=== PATIENT | male | born 1990 | race Caucasian/White ===

== ENCOUNTER 2016-09-03 01:25 | Emergency (ER) | payer OTHER ==
[~2016-09-03] VITALS: Ht 198.1 cm; Wt 108.3 kg
[2016-09-03 01:29] VITALS: TEMP 36.7; Ht 198.1 cm; Wt 108.3 kg
[2016-09-03] MEDS ORDERED: DIPHTHERIA/TETANUS/PERTUSSIS 0.5 ML SYR/VIAL IM. ONE (02:00)
[2016-09-03 02:28] LABS: BASO % 0.5 %; BASO ABS # 0.03 K/uL (0-0.2); COMPLETE YES; EOS % 0.2 %; HEMATOCRIT 43.7 % (42-52); IG% 0.2 %; LYMPH % 20.5 %; LYMPH ABS # 1.14 K/uL (1.2-3.4); MEAN CELL VOLUME 92.2 fL (80-100); MEAN CORPUSCULAR HEMOGLOBIN 32.9 pg (25-34); MEAN CORPUSCULAR HGB CONC 35.7 g/dl (32-36); MEAN PLATELET VOLUME 8.8 fL (7.4-10.4); MONO % 5.2 %; NEUT % 73.4 %; PLATELET COUNT 269 K/uL (130-400); RED BLOOD COUNT 4.74 M/uL (4.7-6.1); WHITE BLOOD COUNT 5.55 K/uL (4.8-10.8)
[2016-09-03 02:46] LABS: BUN/CREATININE RATIO 8.8 (10-20); CALCIUM 8.6 mg/dl (8.5-10.1); CREATININE 0.98 mg/dl (0.60-1.40); POTASSIUM 3.7 mmol/L (3.5-5.1)
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
[2016-09-03 11:58] VITALS: BP 142/66; PULSE 89; O2SAT 100
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
== END 2016-09-03 12:05 | disposition home or self-care (01) ==
LOC: C.EDB 01:26 → C.EDA 12:05
DX: S09.90XA Unspecified injury of head, initial encounter (principal); S00.83XA Contusion of other part of head, initial encounter; S00.81XA Abrasion of other part of head, initial encounter; S60.519A Abrasion of unspecified hand, initial encounter; V43.52XA Car driver injured in collision with other type car in traffic accident, initial encounter; F10.129 Alcohol abuse with intoxication, unspecified; Y90.8 Blood alcohol level of 240 mg/100 ml or more; Z23 Encounter for immunization

== ENCOUNTER → 2016-09-03 | Outpatient (CLI) | payer OTHER | END | disposition home or self-care (01) | LOC: C.LAB 01:20 | DX: Z02.83 Encounter for blood-alcohol and blood-drug test (principal) ==